=== PATIENT | male | born 1990 | race Caucasian/White ===

== ENCOUNTER 2017-05-28 18:49 | Emergency (ER) | payer BC, MEDICAID ==
--- NOTE | 2017-05-28 19:07 | Emergency Department Record ---
History of Present Illness - General Chief Complaint: Chest Pain Stated Complaint: CHEST PAIN Time Seen by Provider: 05/28/17 19:06 Source: Patient Mode of Arrival: Ambulatory Limitations: No limitations - History of Present Illness Initial Comments: 27 yo male presents to ED for evaluation of constant chest pain for the past 2 days. Patient reports fatigue, non-productive cough symptoms, myalgias, and feeling tired. Patient denies any symptoms of pain with deep inspiration, denies history of DVT. Patient denies lower extremity swelling or pain. Patient denies any heart or lung problems, only reports history of HTN. Patient reports that his symptoms have not resolved for 1 minute over the past 2 days. MD Complaint: Chest pain Onset/Timin -: Days(s) Pain Location: Left chest Pain Radiation: None Consistency: Constant Improves With: Nothing Worsens With: Nothing - Related Data Home Medications Medication Instructions Recorded Confirmed Last Taken Cholecalciferol (Vitamin D3) 4,000 unit PO DAILY 05/28/17 05/28/17 Unknown [Vitamin D3] Losartan Potassium [Cozaar] 100 mg PO DAILY 05/28/17 05/28/17 Unknown Nebivolol HCl [Bystolic] 20 mg PO DAILY 05/28/17 05/28/17 Unknown Pantoprazole Sodium [Protonix] 40 mg PO DAILY 05/28/17 05/28/17 Unknown Allergies Allergy/AdvReac Type Severity Reaction Status Date / Time Sulfa (Sulfonamide Allergy PT UNSURE Verified 05/28/17 19:08 Antibiotics) OF REACTION Travel Screening - Travel/Exposure Within Last 30 Days Have you traveled within the last 30 days?: Yes Location Detail:: [place] - Travel Symptoms Symptom Screening: None Review of Systems Constitutional: Denies: Chills, Fever, Malaise, Night sweats Eyes: Denies: Eye discharge, Eye pain ENT: Denies: Congestion, Ear pain, Epistaxis Respiratory: Denies: Cough, Dyspnea Cardiovascular: Reports: Chest pain. Denies: Dyspnea on exertion Endocrine: Denies: Fatigue, Heat or cold intolerance Gastrointestinal: Denies: Abdominal pain, Nausea, Vomiting Genitourinary: Denies: Incontinence, Retention Musculoskeletal: Denies: Arthralgia, Back pain, Gout, Joint swelling Skin: Denies: Bruising, Change in color Neurological: Denies: Abnormal gait, Confusion, Headache Psychiatric: Denies: Anxiety Hematological/Lymphatic: Denies: Anemia, Blood Clots Past Medical History - SOCIAL HISTORY Smoking Status: Former smoker Alcohol Use: Rare Drug Use: None - RESPIRATORY Hx Respiratory Disorders: No - CARDIOVASCULAR Hx Cardio Disorders: Yes Hx Hypertension: Yes - NEURO Hx Neuro Disorders: No - GI Hx GI Disorders: Yes Hx Reflux: Yes - Hx Genitourinary Disorders: No - ENDOCRINE Hx Endocrine Disorders: No - MUSCULOSKELETAL Hx Musculoskeletal Disorders: No - PSYCH Hx Psych Problems: No - HEMATOLOGY/ONCOLOGY Hx Hematology/Oncology Disorders: No Family Medical History Any Significant Family History?: Yes Hx Heart Disease: Mother, Grandparents *Heart Comment: high cholesterol, [place] Physical Exam - General General Appearance: Alert, Oriented x3, Cooperative, No acute distress Limitations: No limitations - Head Head exam: Atraumatic, Normocephalic, Normal inspection Head exam detail: negative: Abrasion, Contusion, Benitez's sign, General tenderness, Hematoma, Laceration - Eye Eye exam: Normal appearance. negative: Conjunctival injection, Periorbital swelling, Periorbital tenderness, Scleral icterus - ENT Ear exam: negative: Auricular hematoma, Auricular trauma Nasal Exam: negative: Active bleeding, Discharge, Dried blood, Foreign body Mouth exam: negative: Drooling, Laceration, Muffled voice, Tongue elevation - Neck Neck exam: Normal inspection. negative: Meningismus, Tenderness - Respiratory Respiratory exam: Normal lung sounds bilaterally. negative: Respiratory distress, Rhonchi, Stridor, Wheezes - Cardiovascular Cardiovascular Exam: Regular rate, Normal rhythm, Normal heart sounds - GI/Abdominal GI/Abdominal exam: Soft. negative: Distended, Rebound, Rigid, Tenderness - Rectal Rectal exam: Deferred - exam: Deferred - Extremities Extremities exam: Normal inspection. negative: Calf tenderness, Pedal edema, Tenderness - Back Back exam: Denies: CVA tenderness (R), CVA tenderness (L) - Neurological Neurological exam: Alert, Normal gait, Oriented X3 - Psychiatric Psychiatric exam: Normal affect, Normal mood - Skin Skin exam: Normal color. negative: Abrasion Type of lesion: negative: abrasion Course Vital Signs 05/28/17 18:53 Temperature 98.3 F Pulse Rate 74 Respiratory 20 Rate Blood Pressure 185/119 Pulse Ox 97 - Reevaluation(s) Reevaluation #1: 05/28/17 19:06 EKG: NSR 71 Normal axis, normal intervals No acute ST-T wave changes Reevaluation #2: 05/28/17 19:57 Labs reviewed and are grossly unremarkable for an acute process. CXR: No acute process Patient was updated on all results, single troponin is felt to be sufficient as the patient has had constant pain for 2 days, normal EKG, and history that does not appear to be c/w cardiac chest pain. Patient is PERC negative on examination as well. Patient appears stable for discharge at this time. Medical Decision Making - Lab Data Result diagrams: 05/28/17 19:05 05/28/17 19:05 Disposition Disposition: Discharge Clinical Impression: Chest pain Qualifiers: Chest pain type: unspecified Qualified Code(s): R07.9 - Chest pain, unspecified Disposition: Home, Self-Care Condition: (2) Stable Instructions: Chest Pain (ED) Additional Instructions: Return to ED if your symptoms worsen or if you have any concerns. Follow-up with your family doctor in 3-5 days as directed. Forms: Patient Portal Access Time of Disposition: 20:01 Quality - Quality Measures Quality Measures: N/A - Blood Pressure Screening Does Patient Have Any of the Following: No Blood Pressure Classification: Hypertensive Reading Systolic Measurement: 163 Diastolic Measurement: 102 Screening for High Blood Pressure: < First Hypertensive BP, F/U Documented > [ G8950] First Hypertensive Follow-up Interventions: Referral to alternative/primary care provider.
[2017-05-28] MEDS ORDERED: KETOROLAC 30 MG/ML VIAL IVP ONE (19:10)
[2017-05-28] MEDS ORDERED: 0.9 % SODIUM CHLORIDE 1000ML 1,000 ML IV SCH (19:15)
[2017-05-28 19:18] LABS: BASO % 0.1 % (0-6); EOS % 3.9 % (0-6); GRAN % 50.3 % (47-80); HEMOGLOBIN 15.1 gm/dl (14.0-18.0); LYMPH % 36.8 % (16-45); MEAN CELL VOLUME 94.4 fl (81-97); MEAN CORPUSCULAR HEMOGLOBIN 32.4 pg (27-33); MEAN CORPUSCULAR HGB CONC 34.3 g/dl (32-36); MEAN PLATELET VOLUME 10.6 fl (7.4-10.4); MONO % 8.9 % (0-9); PLATELET COUNT 298 K/uL (130-400); RED BLOOD COUNT 4.66 M/uL (4.40-5.70); RED CELL DISTRIBUTION WIDTH 12.4 % (11.5-14.5); WHITE BLOOD COUNT W/O DIFF 8.1 K/uL (4.2-12.2)
[2017-05-28 19:29] LABS: INFLUENZA A NEGATIVE (NEGATIVE)
[2017-05-28 19:30] LABS: INFLUENZA B NEGATIVE (NEGATIVE)
[2017-05-28 19:49] LABS: ALB/GLOB RATIO 1.2 (1.1-1.8); ALBUMIN 4.1 g/dL (4.0-5.0); ALKALINE PHOSPHATASE 79 U/L (40-129); ALT/SGPT 23 U/L (<41); AST/SGOT 21 U/L (10.0-50.0); BLOOD UREA NITROGEN 15 mg/dL (6-20); EST GLOMERULAR FILTRATION RATE > 60 mL/min; GLUCOSE,RANDOM 114 mg/dL (74-109); TOTAL PROTEIN 7.5 g/dL (6.6-8.7)
--- NOTE | 2017-05-29 23:33 | RADIOLOGY REPORT ---
EXAM: CHEST 2 VIEWS HISTORY: COUGH. TECHNIQUE: Frontal and lateral views of the chest. COMPARISON: 10/27/12 chest. FINDINGS: The heart size is normal. The lungs are clear. No pneumothorax. IMPRESSION: NEGATIVE CHEST. JOB NUMBER: [id number] MTDD
== END 2017-05-28 20:15 | disposition home or self-care (01) ==
LOC: ER 18:49
DX: R07.9 Chest pain, unspecified (principal); R51 Headache; R05 Cough; R53.83 Other fatigue; I10 Essential (primary) hypertension; Z87.891 Personal history of nicotine dependence
CPT/HCPCS: 99284 ×2; 96374; 85025; 80053; 87400; 84484; 71046; 93005; 93010; J1885; 99282; J7030

== ENCOUNTER 2018-10-30 16:31 | Emergency (ER) | payer BC ==
[2018-10-30 17:53] LABS: URINE APPEARANCE CLEAR; URINE BILIRUBIN NEGATIVE (NEGATIVE); URINE BLOOD NEGATIVE (NEGATIVE); URINE COLOR YELLOW; URINE GLUCOSE (UA) NEGATIVE (NEGATIVE); URINE KETONE NEGATIVE (NEGATIVE); URINE LEUKOCYTE ESTERASE NEGATIVE (NEGATIVE); URINE NITRITE NEGATIVE (NEGATIVE); URINE UROBILINOGEN 0.2 E.U./dL (0.20 - 1.00)
[2018-10-30] MEDS ORDERED: ONDANSETRON HCL IV 4 MG/2 ML VIAL IVP ONE (17:55)
[2018-10-30] MEDS ORDERED: HYDROMORPHONE HCL 2 MG/ML VIAL IVP ONE (17:55)
[2018-10-30] MEDS ORDERED: AMPICILLIN SODIUM/SULBACTAM NA 3 G in 0.9 % SODIUM CHLORIDE 100ML 100 ML IVPB ONE (17:57)
[2018-10-30] MEDS ORDERED: 0.9 % SODIUM CHLORIDE 1000ML 1,000 ML IV SCH (18:00)
--- NOTE | 2018-10-30 18:00 | Emergency Department Record ---
History of Present Illness - General Chief Complaint: Abdominal Pain Stated Complaint: ABD PAIN/NAUSEA Time Seen by Provider: 10/30/18 17:54 Source: Patient Mode of Arrival: Ambulatory Limitations: No limitations - History of Present Illness Initial Comments: 28 yo male presents to ED for evaluation of right sided abdominal pain that began 3 days ago, briefly improved, however worsened today. Patient reports associated nausea/vomiting, denies fevers, chills, or urinary symptoms. Patient denies health problems other than HTN, denies previous abdominal surgeries. Patient reports that his pain symptoms are worse with driving over bumps in the car. MD Complaint: Abdominal pain Onset/Timin -: Days(s) Location: RUQ, RLQ Severity: Severe Severity scale (1-10): 8 Quality: Sharp Consistency: Constant Improves With: Nothing Worsens With: Nothing Associated Symptoms: Constipation, Other - Related Data Home Medications Medication Instructions Recorded Confirmed Last Taken Guanfacine HCl [Intuniv] 3 mg PO DAILY 10/30/18 10/30/18 10/30/18 Lisinopril 20 mg PO DAILY 10/30/18 10/30/18 10/30/18 Allergies Allergy/AdvReac Type Severity Reaction Status Date / Time amlodipine Allergy SWELLING Verified 10/30/18 17:21 (GENERAL) Sulfa (Sulfonamide Allergy PT UNSURE Verified 10/30/18 17:17 Antibiotics) OF REACTION Travel Screening - Travel/Exposure Within Last 30 Days Have you traveled within the last 30 days?: No - Travel/Exposure Within Last Year Have you traveled outside the [place] in the last year?: No - Additonal Travel Details Have you been exposed to anyone with a communicable illness?: No - Travel Symptoms Symptom Screening: None Review of Systems Constitutional: Denies: Chills, Fever, Malaise, Night sweats Eyes: Denies: Eye discharge, Eye pain ENT: Denies: Congestion, Ear pain, Epistaxis Respiratory: Denies: Cough, Dyspnea Cardiovascular: Denies: Chest pain, Dyspnea on exertion Endocrine: Denies: Fatigue, Heat or cold intolerance Gastrointestinal: Reports: Abdominal pain, Nausea, Vomiting Genitourinary: Denies: Incontinence, Retention Musculoskeletal: Denies: Arthralgia, Back pain Skin: Denies: Bruising, Change in color Neurological: Denies: Abnormal gait, Confusion, Headache, Numbness, Tingling Psychiatric: Denies: Anxiety Hematological/Lymphatic: Denies: Anemia, Blood Clots Past Medical History - SOCIAL HISTORY Smoking Status: Former smoker Alcohol Use: Occasional Alcohol Use Comment: 4 to 5 beers a day Drug Use: None - RESPIRATORY Hx Respiratory Disorders: No - CARDIOVASCULAR Hx Cardio Disorders: Yes Hx Hypertension: Yes - NEURO Hx Neuro Disorders: No - GI Hx GI Disorders: Yes Hx Reflux: Yes - Hx Genitourinary Disorders: No - ENDOCRINE Hx Endocrine Disorders: No - MUSCULOSKELETAL Hx Musculoskeletal Disorders: No - PSYCH Hx Psych Problems: No - HEMATOLOGY/ONCOLOGY Hx Hematology/Oncology Disorders: No Family Medical History Any Significant Family History?: Yes Hx Heart Disease: Mother, Grandparents *Heart Comment: high cholesterol, [place] Physical Exam - General General Appearance: Alert, Oriented x3, Cooperative, Moderate distress (Appears uncomfortable on examination) Limitations: No limitations - Head Head exam: Atraumatic, Normocephalic, Normal inspection Head exam detail: negative: Abrasion, Contusion, Benitez's sign, General tenderness, Hematoma, Laceration - Eye Eye exam: Normal appearance. negative: Conjunctival injection, Periorbital swelling, Periorbital tenderness, Scleral icterus - ENT Ear exam: negative: Auricular hematoma, Auricular trauma Nasal Exam: negative: Active bleeding, Discharge, Dried blood, Foreign body Mouth exam: negative: Laceration, Muffled voice, Tongue elevation - Neck Neck exam: Normal inspection. negative: Meningismus, Tenderness - Respiratory Respiratory exam: Normal lung sounds bilaterally. negative: Respiratory distress, Rhonchi, Stridor, Wheezes - Cardiovascular Cardiovascular Exam: Regular rate, Normal rhythm, Normal heart sounds - GI/Abdominal GI/Abdominal exam: Soft, Tenderness, Other (TTP greastest RLQ, then RUQ, LLQ on examination. ). negative: Pulsatile mass, Rebound, Rigid - Rectal Rectal exam: Deferred - exam: Deferred - Extremities Extremities exam: Normal inspection. negative: Pedal edema, Tenderness - Back Back exam: Denies: CVA tenderness (R), CVA tenderness (L) - Neurological Neurological exam: Alert, Normal gait, Oriented X3 - Psychiatric Psychiatric exam: Normal affect, Normal mood - Skin Skin exam: Normal color. negative: Abrasion Type of lesion: negative: abrasion Course Vital Signs 10/30/18 17:23 Temperature 97.6 F Pulse Rate 68 Respiratory 16 Rate Blood Pressure 125/72 Pulse Ox 97 - Reevaluation(s) Reevaluation #1: 10/30/18 17:59 Patient was seen and examined, abdominal examination is concerning for possible surgical process. Analgesia, antiemetic, laboratory studies and CT imaging ordered. Unasyn ordered as well for treatment of possible cholecystitis/appendicitis pending results. Reevaluation #2: 10/30/18 18:41 Laboratory studies were reviewed and are grossly unremarkable for an acute pro cess except for the following: WBC 18 Creatinine 3.1 (previous 1.0 06/09) Patient is back from CT, reports that he is feeling more comfortable on re- examination. CT result is pending at this time. Reevaluation #3: 10/30/18 19:15 CT Abdomen and Pelvis: No acute process Reevaluation #4: 10/30/18 19:32 Patient was updated on all results, examination is still concerning for surgical process. Recommend surgical consultation, patient prefers [facility]. [facility] 1-call contacted for transfer. Reevaluation #5: 10/30/18 19:43 Case was discussed with Dr. Mccain and Dr. Navarro, will accept the patient ED- ED for surgical consultation. Medical Decision Making - Lab Data Result diagrams: 10/30/18 17:50 10/30/18 17:50 Lab Results 10/30/18 Range/Units 17:46 Urine Color Yellow Urine Appearance Clear Urine pH 6.0 (5.0-8.0) Ur Specific Bliss <= 1.005 (1.002-1.030) Urine Protein 30 mg/dl H (NEGATIVE) Urine Glucose (UA) Negative (NEGATIVE) Urine Ketones Negative (NEGATIVE) Urine Blood Negative (NEGATIVE) Urine Nitrite Negative (NEGATIVE) Urine Bilirubin Negative (NEGATIVE) Urine Urobilinogen 0.2 (0.20 - 1.00) E.U./dL Ur Leukocyte Esterase Negative (NEGATIVE) Disposition Disposition: Transfer Clinical Impression: ANJANA (acute kidney injury) Abdominal pain Qualifiers: Abdominal location: right lower quadrant Qualified Code(s): R10.31 - Right lower quadrant pain Leukocytosis Qualifiers: Leukocytosis type: unspecified Qualified Code(s): D72.829 - Elevated white blood cell count, unspecified Disposition: Acute Care Hospital Transfer Transfer To: [facility] Reason For Transfer: Surgical consultation Accepting Physician: Boaz Keating Time Discussed w/Accepting Physician: 19:44 Condition: (2) Stable Forms: Patient Portal Access Time of Disposition: 19:45 Quality - Quality Measures Quality Measures: N/A - Blood Pressure Screening Does Patient Have Any of the Following: No Blood Pressure Classification: Pre-Hypertensive BP Reading Systolic Measurement: 125 Diastolic Measurement: 72 Screening for High Blood Pressure: < Pre-Hypertensive BP, F/U Documented > [G8950] Pre-Hypertensive Follow-up Interventions: Referral to alternative/primary care provider.
[2018-10-30 18:03] LABS: URINE BACTERIA FEW; URINE EPITHELIAL CELLS 0 - 2 (FEW); URINE HYALINE CAST 0 - 2 /lpf; URINE RBC 0 - 2 (NONE SEEN)
[2018-10-30 18:15] LABS: HEMATOCRIT 45.3 % (42.0-52.0); HEMOGLOBIN 15.3 gm/dl (14.0-18.0); MEAN CORPUSCULAR HEMOGLOBIN 32.1 pg (27-33); MEAN CORPUSCULAR HGB CONC 33.8 g/dl (32-36); MEAN PLATELET VOLUME 10.8 fl (7.4-10.4); PLATELET COUNT 293 K/uL (130-400); RED BLOOD COUNT 4.77 M/uL (4.40-5.70); RED CELL DISTRIBUTION WIDTH 14.1 % (11.5-14.5)
[2018-10-30 18:26] LABS: BILIRUBIN,TOTAL 0.6 mg/dL (0.2-1.0); CREATININE 3.1 mg/dL (0.7-1.2)
[2018-10-30 18:27] LABS: TOTAL PROTEIN 7.8 g/dL (6.6-8.7)
[2018-10-30 18:32] LABS: ALB/GLOB RATIO 1.2 (1.1-1.8); ALBUMIN 4.3 g/dL (4.0-5.0)
[2018-10-30 18:46] LABS: ABSOLUTE NEUTROPHIL COUNT 13.46
[2018-10-30] MEDS ORDERED: MORPHINE SULFATE 10MG/1ML **1ML VIAL IVP SCH (20:15)
--- NOTE | 2018-11-02 01:52 | CT SCAN REPORT ---
EXAM: CT SCAN ABDOMEN/PELVIS W CONTRAST HISTORY: RIGHT-SIDED ABDOMINAL PAIN TODAY. TECHNIQUE: Standard CT imaging of the abdomen and pelvis with IV contrast. Coronal and sagittal reformations are provided. Delayed images are obtained through the kidneys. COMPARISON: None. FINDINGS: Extensive respiratory motion at the level of the diaphragms. Portions of the liver appear skipped due to the extensive respiratory motion. The liver is unremarkable. The gallbladder demonstrates no calcified stones or pericholecystic edema. The common bile duct is not dilated. The pancreas, spleen, adrenal glands, and kidneys appear normal. The stomach and small bowel are unremarkable. There is a tiny fat-containing umbilical hernia. The bladder is unremarkable. The colon and appendix appear normal. No free fluid or free air is seen. No retroperitoneal or pelvic adenopathy. The aorta is normal in caliber. No destructive osseous lesion is identified. IMPRESSION: NEGATIVE CT OF THE ABDOMEN AND PELVIS. SUBOPTIMAL EVALUATION AT THE LEVEL OF THE DIAPHRAGM DUE TO RESPIRATORY MOTION. ADDENDUM: Second look requested at slice 108 adjacent to the cecum. Within this region, there is the terminal ileum without evidence for definite wall thickening or inflammatory changes. JOB NUMBER: [id number] [facility]
== END 2018-10-30 20:40 | disposition short-term general hospital (02) ==
LOC: ER 16:31
DX: N17.9 Acute kidney failure, unspecified (principal); D72.829 Elevated white blood cell count, unspecified; R10.31 Right lower quadrant pain; I10 Essential (primary) hypertension; F17.210 Nicotine dependence, cigarettes, uncomplicated
CPT/HCPCS: 99285 ×2; 96365; 96375; 83690; 80053; 81001; 85027; 74177; Q9967; J0295; J2405; J1170; J2270

== ENCOUNTER 2019-03-21 13:06 | Emergency (ER) | payer BC ==
[2019-03-21] MEDS ORDERED: METHYLPREDNISOLONE PF 125MG/VIAL IVP ONE (13:19)
[2019-03-21] MEDS ORDERED: EPINEPHRINE 1 MG/ML AMPUL IM ONE (13:20)
[2019-03-21] MEDS ORDERED: FAMOTIDINE IV 20 MG/2 ML VIAL IVP ONE (13:24)
--- NOTE | 2019-03-21 13:26 | Emergency Department Record ---
History of Present Illness - General Chief complaint: Allergic Reaction Stated complaint: ALERGIC REACTION Time Seen by Provider: 03/21/19 13:19 Source: Patient, RN notes reviewed Mode of Arrival: Ambulatory - History of Present Illness Initial Comments: patient wake up with swollen lips and he accidentally took double dose of lisopril and he also has hives and bottom of the right foot swollen . Some tightness in his throat. [facility] and got a shot of steroids and given benadryl and things getting worse so came to the ED. Onset/Timin -: Hour(s) Exposure: Medication Symptoms: Difficulty swallowing, Lip swelling Severity: Moderate Treatment Prior to Arrival: Benadryl, Steroids Previous Allergy History: None - Related Data Home Medications Medication Instructions Recorded Confirmed Last Taken Bupropion HCl [Wellbutrin Xl] 300 mg PO DAILY 03/21/19 03/21/19 Unknown Previous Rx's Medication Instructions Recorded Prednisone [Prednisone 10Mg] 10 mg PO ASDIR #30 tab 03/21/19 Allergies Allergy/AdvReac Type Severity Reaction Status Date / Time amlodipine Allergy SWELLING Verified 10/30/18 17:21 (GENERAL) Sulfa (Sulfonamide Allergy PT UNSURE Verified 10/30/18 17:17 Antibiotics) OF REACTION Travel Screening - Travel/Exposure Within Last 30 Days Have you traveled within the last 30 days?: No Review of Systems Reviewed: No additional complaints except as noted below Constitutional: Reports: As per HPI. Denies: Chills, Fever, Malaise, Night sweats, Weakness, Weight change Eyes: Reports: As per HPI. Denies: Eye discharge, Eye pain, Photophobia, Vision change ENT: Reports: As per HPI, Other (swelling of lips). Denies: Congestion, Dental pain, Ear pain, Epistaxis, Hearing loss, Throat pain Respiratory: Reports: As per HPI. Denies: Cough, Dyspnea, Hemoptysis, Stridor, Wheezes Cardiovascular: Reports: As per HPI. Denies: Arrhythmia, Chest pain, Dyspnea on exertion, Edema, Murmurs, Orthopnea, Palpitations, Paroxysmal nocturnal dyspnea, Rheumatic Fever, Syncope Endocrine: Reports: As per HPI. Denies: Fatigue, Heat or cold intolerance, Polydipsia, Polyuria Gastrointestinal: Reports: As per HPI. Denies: Abdominal pain, Constipation, Diarrhea, Hematemesis, Hematochezia, Melena, Nausea, Vomiting Genitourinary: Reports: As per HPI. Denies: Dysuria, Frequency, Hematuria, Incontinence, Retention, Testicular pain, Testicular mass, Urgency Musculoskeletal: Reports: As per HPI. Denies: Arthralgia, Back pain, Gout, Joint swelling, Myalgia, Neck pain Skin: Reports: As per HPI. Denies: Bruising, Change in color, Change in hair/nails, Lesions, Pruritus, Rash Neurological: Reports: As per HPI. Denies: Abnormal gait, Confusion, Headache, Numbness, Paresthesias, Seizure, Tingling, Tremors, Vertigo, Weakness Psychiatric: Reports: As per HPI. Denies: Anxiety, Auditory hallucinations, Dep ression, Homicidal thoughts, Suicidal thoughts, Visual hallucinations Hematological/Lymphatic: Reports: As per HPI. Denies: Anemia, Blood Clots, Easy bleeding, Easy bruising, Swollen glands Past Medical History - SOCIAL HISTORY Smoking Status: Former smoker - RESPIRATORY Hx Respiratory Disorders: No - CARDIOVASCULAR Hx Cardio Disorders: Yes Hx Hypertension: Yes - NEURO Hx Neuro Disorders: No - GI Hx GI Disorders: Yes Hx Reflux: Yes - Hx Genitourinary Disorders: No - ENDOCRINE Hx Endocrine Disorders: No - MUSCULOSKELETAL Hx Musculoskeletal Disorders: No - PSYCH Hx Psych Problems: No - HEMATOLOGY/ONCOLOGY Hx Hematology/Oncology Disorders: No Family Medical History Any Significant Family History?: Yes Hx Heart Disease: Mother, Grandparents *Heart Comment: high cholesterol, [place] Physical Exam - General General Appearance: Alert, Oriented x3, Cooperative, No acute distress - Head Head exam: Normal inspection - Eye Eye exam: Normal appearance, PERRL Pupils: Normal accommodation - ENT ENT exam: Normal external ear exam, TM's normal bilaterally, Other (swollen upper lip ) Ear exam: Normal external inspection. negative: External canal tenderness Nasal Exam: Normal inspection. negative: Discharge, Sinus tenderness Mouth exam: Normal external inspection, Tongue normal Teeth exam: Normal inspection. negative: Dental caries Throat exam: Normal inspection, Other (no swelling in posterior throat). negative: Tonsillar erythema, Tonsillar exudate - Neck Neck exam: Normal inspection, Full ROM. negative: Tenderness - Respiratory Respiratory exam: Normal lung sounds bilaterally. negative: Respiratory distress - Cardiovascular Cardiovascular Exam: Regular rate, Normal rhythm, Normal heart sounds - GI/Abdominal GI/Abdominal exam: Soft, Normal bowel sounds. negative: Tenderness - Rectal Rectal exam: Deferred - exam: Deferred - Extremities Extremities exam: Normal inspection, Full ROM, Normal capillary refill. negative: Tenderness - Back Back exam: Reports: Normal inspection, Full ROM. Denies: Muscle spasm, Rash noted, Tenderness - Neurological Neurological exam: Alert, Normal gait, Oriented X3, Reflexes normal - Psychiatric Psychiatric exam: Normal affect, Normal mood - Skin Skin exam: Rash, Urticaria, Other (some swelling of the right foot) Course Vital Signs 03/21/19 13:08 Temperature 98.1 F Pulse Rate 86 Respiratory 16 Rate Blood Pressure 164/103 Pulse Ox 94 L - Reevaluation(s) Reevaluation #1: advised patient he needs to stay to make sure his air way stays open03/21/19 15:16 Reevaluation #2: pateint states his throat is better and he is drinking water without problems and his lips are swollen and the reah on body is better. 03/21/19 16:21 Reevaluation #3: we talked about staying in the hospital and he doesn't want to stay and he will return if difficulties with swallowing or breathing . Risk discussed. overall he is doing better except for his lips which are swollen. I wanted him to stay and he said no. Female with him listened to the discussion 03/21/19 16:22 Disposition Clinical Impression: Angioedema Qualifiers: Encounter type: initial encounter Qualified Code(s): T78.3XXA - Angioneurotic edema, initial encounter Disposition: Home, Self-Care Condition: (1) Good Instructions: Angioedema (ED) Additional Instructions: return if diificulty breathing or difficulty swallowing take prednisone 4 pills a day for 3 days and then 3 pills a day for 3 days then 2 pills a day for three days than one pill a day. take benadryl 50 mg every 6 hours follow up with family Dr next week stop lisinopril Prescriptions: Prednisone [Prednisone 10Mg] 10 mg PO ASDIR #30 tab Forms: Patient Portal Access Time of Disposition: 16:34 Quality - Quality Measures Quality Measures: N/A - Blood Pressure Screening Does Patient Have Any of the Following: No, Active Dx of HTN Blood Pressure Classification: Hypertensive Reading Systolic Measurement: 164 Diastolic Measurement: 103 Screening for High Blood Pressure: Patient Exclusion, Hx of HTN [G9744]
== END 2019-03-21 17:05 | disposition home or self-care (01) ==
LOC: ER 13:06
DX: T46.4X1A Poisoning by angiotensin-converting-enzyme inhibitors, accidental (unintentional), initial encounter (principal); T78.3XXA Angioneurotic edema, initial encounter; R13.10 Dysphagia, unspecified; I10 Essential (primary) hypertension; Z87.891 Personal history of nicotine dependence
CPT/HCPCS: 96372; 96374; 96375; 99284; J0171; J2930; J3490

== ENCOUNTER 2019-03-22 01:47 | Emergency (ER) | payer BC ==
--- NOTE | 2019-03-22 01:55 | Emergency Department Record ---
History of Present Illness - General Stated complaint: ALLERGIC REACTION Time Seen by Provider: 03/22/19 01:48 Source: Patient Mode of Arrival: Ambulatory Limitations: No limitations - History of Present Illness Initial comments: 28 yo male returns for a recheck of his lip swelling. He was evaluated earlier on 03/21. He is on Lisinopril. He was treated in the ED with Epinephrine, Steroids, and Pepcid. He states earlier his upper lip was the main issue with a feeling of throat swelling. Now he returns with lower lip swelling that is new. No cough, no shortness of breath, no throat swelling, no trouble swallowing currently. His last dose of his Lisinopril was yesterday. He additionally had some hives on the lower abdomen, back, arms that are improved since this mo rning. He has taken Benadryl twice during the day. MD complaint: Other (Lip swelling) -: Hour(s) Location: Lower lip Quality: Other Consistency: Constant Improves with: Other Worsens with: Medication Context-Epistaxis: History of similar (Earlier today) - Related Data Previous Rx's Medication Instructions Recorded Prednisone [Prednisone 10Mg] 10 mg PO ASDIR #30 tab 03/21/19 Allergies Allergy/AdvReac Type Severity Reaction Status Date / Time amlodipine Allergy SWELLING Verified 10/30/18 17:21 (GENERAL) lisinopril Allergy SWELLING Verified 03/22/19 01:57 OF THE LIPS losartan Allergy SWELLING Verified 03/22/19 01:57 (GENERAL) Sulfa (Sulfonamide Allergy PT UNSURE Verified 10/30/18 17:17 Antibiotics) OF REACTION Review of Systems Constitutional: Denies: Chills, Fever, Malaise, Weakness Eyes: Denies: Eye discharge, Eye pain, Vision change ENT: Reports: Other (Lip swelling). Denies: Congestion, Dental pain, Throat pain Respiratory: Denies: Cough, Dyspnea Cardiovascular: Denies: Chest pain, Syncope Endocrine: Denies: Fatigue Gastrointestinal: Denies: Abdominal pain, Diarrhea, Nausea, Vomiting Genitourinary: Denies: Dysuria, Frequency, Hematuria Musculoskeletal: Denies: Arthralgia, Back pain, Myalgia Skin: Denies: Bruising, Change in color, Rash Neurological: Denies: Headache Psychiatric: Denies: Anxiety Hematological/Lymphatic: Denies: Easy bleeding, Easy bruising Past Medical History - SOCIAL HISTORY Smoking Status: Former smoker - RESPIRATORY Hx Respiratory Disorders: No - CARDIOVASCULAR Hx Cardio Disorders: Yes Hx Hypertension: Yes - NEURO Hx Neuro Disorders: No - GI Hx GI Disorders: Yes Hx Reflux: Yes - Hx Genitourinary Disorders: No - ENDOCRINE Hx Endocrine Disorders: No - MUSCULOSKELETAL Hx Musculoskeletal Disorders: No - PSYCH Hx Psych Problems: No - HEMATOLOGY/ONCOLOGY Hx Hematology/Oncology Disorders: No Family Medical History Hx Heart Disease: Mother, Grandparents *Heart Comment: high cholesterol, [place] Physical Exam - General General Appearance: Alert, Oriented x3, Cooperative, No acute distress, Other ( No distress, mild upper and moderate lower lip swelling, normal tongue) Limitations: No limitations - Head Head exam: Atraumatic, Normal inspection Image of Face/Head: 1 - moderate lower lip swelling - Eye Eye exam: Normal appearance, PERRL - ENT ENT exam: Normal exam, Mucous membranes moist, Normal orophraynx Ear exam: Normal external inspection Nasal Exam: Normal inspection Mouth exam: Tongue normal, Other (Lower lip swelling, moderate, easily and widely opens the mouth.). negative: Normal external inspection, Drooling, Muffled voice, Tongue elevation, Trismus Teeth exam: Normal inspection. negative: Gingival enlargement Throat exam: Normal inspection. negative: Tonsillar erythema, Tonsillomegaly, Tonsillar exudate, R peritonsillar mass, L peritonsillar mass - Neck Neck exam: Normal inspection, Full ROM. negative: Tenderness - Respiratory Respiratory exam: Normal lung sounds bilaterally, Other (Calm breathing). negative: Accessory muscle use, Decreased breath sounds, Prolonged expiratory, Respiratory distress, Rhonchi, Stridor, Wheezes - Cardiovascular Cardiovascular Exam: Regular rate, Normal rhythm, Normal heart sounds - GI/Abdominal GI/Abdominal exam: Soft. negative: Tenderness - Rectal Rectal exam: Deferred - exam: Deferred - Extremities Extremities exam: Normal inspection. negative: Calf tenderness, Pedal edema, Tenderness - Back Back exam: Reports: Rash noted (few hives in the lower abdomen). Denies: CVA tenderness (R), CVA tenderness (L) - Neurological Neurological exam: Alert, Oriented X3 - Psychiatric Psychiatric exam: Normal affect, Normal mood - Skin Skin exam: negative: Diaphoretic Course - Reevaluation(s) Reevaluation #1: Given the recurrent nature of the swelling now involving a new area I recommend admission I recommend admission at a hospital with step down or anesthesia available in the event it worsens The patient is a patient of [facility] at [facility] was contacted for possible transfer The patient has a clear voice without immediate indication for airway management 03/22/19 02:08 12 02:19 The case was discussed with Dr Crenshaw of [facility] She agrees to accept the case for transfer for observation until resolved 03/22/19 02:19 The patient is well aware he is to not take an Fidencio Inhibitor again (Lisinopril) We discussed that there may be another cause of his reaction but the Lisinopril is likely given the nature and location of the edema 03/22/19 02:27 On recheck no significant change. No worsening. 03/22/19 02:28 03/22/19 02:34 Bed assigned at [facility] 12 02:37 The patient was informed Swelling is unchanged 03/22/19 03:01 The lab analyzing is down for calibration so no labs were run or would be available at this time 03/22/19 03:04 Swelling is not significantly changed No throat or tongue symptoms 03/22/19 03:05 Waiting for EMS availability 03/22/19 03:16 20 minute ETA for EMS at this time. Patient is stable for transfer Disposition Disposition: Transfer Clinical Impression: Angioedema Qualifiers: Encounter type: initial encounter Qualified Code(s): T78.3XXA - Angioneurotic edema, initial encounter Disposition: Acute Care Hospital Transfer Transfer To: [facility] Reason For Transfer: Recurrent Angioedema Accepting Physician: Den Time Discussed w/Accepting Physician: 02:18 Condition: (2) Stable Forms: Patient Portal Access Time of Disposition: :18 Quality - Quality Measures Quality Measures: N/A - Blood Pressure Screening Does Patient Have Any of the Following: No Blood Pressure Classification: Hypertensive Reading Systolic Measurement: 140 Diastolic Measurement: 92 Screening for High Blood Pressure: Patient Exclusion, Hx of HTN [G9744]
[2019-03-22] MEDS ORDERED: METHYLPREDNISOLONE PF 125MG/VIAL IVP STA (01:57)
[2019-03-22] MEDS ORDERED: FAMOTIDINE IV 40 MG in 0.9 % SODIUM CHLORIDE 100ML 100 ML IVPB ONE (01:57)
[2019-03-22] MEDS ORDERED: EPINEPHRINE 1 MG/ML AMPUL IM ONE (01:57)
[2019-03-22] MEDS ORDERED: DIPHENHYDRAMINE HCL 50 MG/ML VIAL IVP ONE (01:57)
[2019-03-22] MEDS ORDERED: ACETAMINOPHEN 1,000 MG/100 ML BTL IVPB ONE (03:01)
== END 2019-03-22 03:36 | disposition short-term general hospital (02) ==
LOC: ER 01:47
DX: T78.3XXA Angioneurotic edema, initial encounter (principal); T46.4X5A Adverse effect of angiotensin-converting-enzyme inhibitors, initial encounter; I10 Essential (primary) hypertension; Z87.891 Personal history of nicotine dependence
CPT/HCPCS: 96365; 96366; 96372; 96375; 99285; J0171; J1200; J2930; J3490

== ENCOUNTER 2019-03-24 05:45 | Emergency (ER) | payer BC ==
[2019-03-24 06:15] LABS: ABSOLUTE NEUTROPHIL COUNT 9.38; BASO % 0.1 % (0-6); GRAN % 65.9 % (47-80); HEMATOCRIT 50.8 % (42.0-52.0); LYMPH % 27.2 % (16-45); MEAN CELL VOLUME 93.4 fl (81-97); MEAN CORPUSCULAR HEMOGLOBIN 31.3 pg (27-33); MEAN CORPUSCULAR HGB CONC 33.5 g/dl (32-36); MEAN PLATELET VOLUME 11.5 fl (7.4-10.4); MONO % 6.8 % (0-9); PLATELET COUNT 384 K/uL (130-400); RED BLOOD COUNT 5.44 M/uL (4.40-5.70); RED CELL DISTRIBUTION WIDTH 15.3 % (11.5-14.5); WHITE BLOOD COUNT W/O DIFF 14.3 K/uL (4.2-12.2)
[2019-03-24] MEDS ORDERED: METHYLPREDNISOLONE PF 125MG/VIAL IVP ONE (06:16)
[2019-03-24] MEDS ORDERED: DIPHENHYDRAMINE HCL 50 MG/ML VIAL IVP ONE (06:16)
[2019-03-24 06:27] LABS: BLOOD UREA NITROGEN 19 mg/dL (6-20); CREATININE 1.3 mg/dL (0.7-1.2); EST GLOMERULAR FILTRATION RATE > 60 mL/min
[2019-03-24 06:28] LABS: TOTAL PROTEIN 7.4 g/dL (6.6-8.7)
[2019-03-24] MEDS ORDERED: 0.9 % SODIUM CHLORIDE 1,000 ML BAG IV ONE (06:29)
[2019-03-24 06:30] LABS: GLUCOSE,RANDOM 111 mg/dL (74-109)
[2019-03-24 06:33] LABS: ALB/GLOB RATIO 1.2 (1.1-1.8); ALBUMIN 4.1 g/dL (4.0-5.0); ALKALINE PHOSPHATASE 82 U/L (40-129); ALT/SGPT 20 U/L (<41); AST/SGOT 15 U/L (10.0-50.0)
--- NOTE | 2019-03-24 06:41 | Emergency Department Record ---
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 he has been in the hospital for angioedema here and at [place] to [facility]. he was on an epi drip and was d/c yesterday. then yesterday he developed hives. 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 he has a hx of tachycardia and htn. pt has positive family hx of heart disease MD Complaint: Chest pain Onset/Timin -: Minutes(s) Onset: During exertion Pain Location: Left chest Pain Radiation: Back Severity: Severe Severity scale (1-10): 9 Quality: Ripping, Sharp Consistency: Constant Improves With: Nothing Worsens With: Exertion, Inspiration, Movement Context: New medications, Recent illness, Other Treatments Prior to Arrival: Other Treatment Prior to Arrival Comment:: prednisone - Related Data Home Medications Medication Instructions Recorded Confirmed Last Taken Metoprolol Succinate [Toprol Xl] 25 mg PO DAILY 03/24/19 03/24/19 03/24/19 Previous Rx's Medication Instructions Recorded Prednisone [Prednisone 10Mg] 10 mg PO ASDIR #30 tab 03/21/19 Allergies Allergy/AdvReac Type Severity Reaction Status Date / Time amlodipine Allergy SWELLING Verified 10/30/18 17:21 (GENERAL) lisinopril Allergy SWELLING Verified 03/22/19 01:57 OF THE LIPS losartan Allergy SWELLING Verified 03/22/19 01:57 (GENERAL) Sulfa (Sulfonamide Allergy PT UNSURE Verified 10/30/18 17:17 Antibiotics) OF REACTION Travel Screening - Travel/Exposure Within Last 30 Days Have you traveled within the last 30 days?: No - Travel Symptoms Symptom Screening: None Review of Systems Reviewed: No additional complaints except as noted below Constitutional: Reports: As per HPI. Denies: Chills, Fever, Malaise, Night sweats, Weakness, Weight change Eyes: Reports: As per HPI. Denies: Eye discharge, Eye pain, Photophobia, Vision change ENT: Reports: As per HPI. Denies: Congestion, Dental pain, Ear pain, Epistaxis, Hearing loss, Throat pain Respiratory: Reports: As per HPI. Denies: Cough, Dyspnea, Hemoptysis, Stridor, Wheezes Cardiovascular: Reports: As per HPI, Chest pain, Palpitations. Denies: Arrhythmia, Dyspnea on exertion, Edema, Murmurs, Orthopnea, Paroxysmal nocturnal dyspnea, Rheumatic Fever, Syncope Endocrine: Reports: As per HPI. Denies: Fatigue, Heat or cold intolerance, Polydipsia, Polyuria Gastrointestinal: Reports: As per HPI. Denies: Abdominal pain, Constipation, Diarrhea, Hematemesis, Hematochezia, Melena, Nausea, Vomiting Genitourinary: Reports: As per HPI. Denies: Dysuria, Frequency, Hematuria, Incontinence, Retention, Testicular pain, Testicular mass, Urgency Musculoskeletal: Reports: As per HPI. Denies: Arthralgia, Back pain, Gout, Joint swelling, Myalgia, Neck pain Skin: Reports: As per HPI, Pruritus, Rash. Denies: Bruising, Change in color, Change in hair/nails, Lesions Neurological: Reports: As per HPI. Denies: Abnormal gait, Confusion, Headache, Numbness, Paresthesias, Seizure, Tingling, Tremors, Vertigo, Weakness Psychiatric: Reports: As per HPI. Denies: Anxiety, Auditory hallucinations, Depression, Homicidal thoughts, Suicidal thoughts, Visual hallucinations Hematological/Lymphatic: Reports: As per HPI. Denies: Anemia, Blood Clots, Easy bleeding, Easy bruising, Swollen glands Past Medical History - SOCIAL HISTORY Smoking Status: Former smoker Alcohol Use: None Drug Use: None - RESPIRATORY Hx Respiratory Disorders: No - CARDIOVASCULAR Hx Cardio Disorders: Yes Hx Hypertension: Yes - NEURO Hx Neuro Disorders: No - GI Hx GI Disorders: Yes Hx Reflux: Yes - Hx Genitourinary Disorders: No - ENDOCRINE Hx Endocrine Disorders: No - MUSCULOSKELETAL Hx Musculoskeletal Disorders: No - PSYCH Hx Psych Problems: No - HEMATOLOGY/ONCOLOGY Hx Hematology/Oncology Disorders: No Family Medical History Any Significant Family History?: Yes Hx Heart Disease: Mother, Grandparents *Heart Comment: high cholesterol, [place] Physical Exam - General General Appearance: Alert, Oriented x3, Cooperative, Mild distress - Head Head exam: Normal inspection - Eye Eye exam: Normal appearance, PERRL, EOMI Pupils: Normal accommodation - ENT ENT exam: Normal exam, Mucous membranes moist, Normal external ear exam, Normal orophraynx Ear exam: Normal external inspection. negative: External canal tenderness Nasal Exam: Normal inspection. negative: Discharge, Sinus tenderness Mouth exam: Normal external inspection, Tongue normal Teeth exam: Normal inspection. negative: Dental caries Throat exam: Normal inspection. negative: Tonsillar erythema, Tonsillar exudate - Neck Neck exam: Normal inspection, Full ROM. negative: Tenderness - Respiratory Respiratory exam: Normal lung sounds bilaterally. negative: Respiratory distress - Cardiovascular Cardiovascular Exam: Regular rate, Normal rhythm, Normal heart sounds - GI/Abdominal GI/Abdominal exam: Soft, Normal bowel sounds. negative: Tenderness - Rectal Rectal exam: Deferred - exam: Deferred - Extremities Extremities exam: Normal inspection, Full ROM, Normal capillary refill. negative: Tenderness - Back Back exam: Reports: Normal inspection, Full ROM. Denies: Muscle spasm, Rash noted, Tenderness - Neurological Neurological exam: Alert, CN II-XII intact, Normal gait, Oriented X3 - Psychiatric Psychiatric exam: Normal affect, Normal mood - Skin Skin exam: Dry, Intact, Normal color, Urticaria, Warm Distribution of rash: Generalized Description of rash: Urticarial Course Vital Signs 03/24/19 05:51 Pulse Rate [ 77 Sheeter Helper ] Respiratory 24 Rate Blood Pressure 131/90 [Right Arm] Pulse Ox 100 - Reevaluation(s) Reevaluation #1: 03/24/19 06:44 pt not given aspirin initially because of concern for aortic dissection. Reevaluation #2: 03/24/19 07:01 care being assumed by dr grullon Medical Decision Making - Lab Data Result diagrams: 03/24/19 05:50 03/24/19 05:59 Lab Results 03/24/19 03/24/19 Range/Units 05:50 05:59 WBC 14.3 H (4.2-12.2) K/uL RBC 5.44 (4.40-5.70) M/uL Hgb 17.0 (14.0-18.0) gm/dl Hct 50.8 (42.0-52.0) % MCV 93.4 (81-97) fl MCH 31.3 (27-33) pg MCHC 33.5 (32-36) g/dl RDW 15.3 H (11.5-14.5) % Plt Count 384 (130-400) K/uL MPV 11.5 H (7.4-10.4) fl Gran % 65.9 (47-80) % Lymphocytes % 27.2 (16-45) % Monocytes % 6.8 (0-9) % Eosinophils % 0.0 (0-6) % Basophils % 0.1 (0-6) % Absolute Neutrophils 9.38 Sodium 142 (136-145) mmol/L Potassium 3.7 (3.4-4.5) mmol/L Chloride 103 (98-107) mmol/L Carbon Dioxide 24.0 (22-29) mmol/L Anion Gap 15.0 (7-16) BUN 19 (6-20) mg/dL Creatinine 1.3 H (0.7-1.2) mg/dL Estimated GFR > 60 mL/min Random Glucose 111 H (74-109) mg/dL Calcium 9.1 (8.6-10.0) mg/dL Total Bilirubin 0.30 (0.2-1.0) mg/dL Total Protein 7.4 (6.6-8.7) g/dL Disposition Forms: Patient Portal Access Quality - Quality Measures Quality Measures: N/A - Blood Pressure Screening Does Patient Have Any of the Following: Active Dx of HTN Blood Pressure Classification: Hypertensive Reading Systolic Measurement: 131 Diastolic Measurement: 90 Screening for High Blood Pressure: Patient Exclusion, Hx of HTN [G9744]
[2019-03-24] MEDS ORDERED: NITROGLYCERIN 0.4MG SL TABLET #25 BTL SL PRN (06:52)
[2019-03-24] MEDS ORDERED: MORPHINE SULFATE 5 MG/ML VIAL IVP ONE (06:52)
--- NOTE | 2019-03-24 07:16 | CT ANGIOGRAM REPORT ---
EXAMINATION: CT Angiography of the Thorax EXAM DATE: 03/24/2019 7:01 AM TECHNIQUE: Standard protocol CT angiogram images were obtained through the chest following the admini stration of intravenous contrast. Coronal and sagittal MIP 3-D reformations were performed. IV Contrast: The amount and type of contrast are recorded in the medical record. INDICATION: CP. COMPARISON: CXR 05/28/2017 ENCOUNTER: Not applicable FINDINGS: Pulmonary Artery: Suboptimal pulmonary artery opacification. No central emboli Aorta: No thoracic aortic aneurysm or dissection is present. Right Heart Strain: None. Heart : There is no pericardial effusion. Mickie and Mediastinum: No lymphadenopathy. Lung Parenchyma: Normal. Central Airways: Normal. Pleural Effusion: None. Mild pleural thickening right minor fissure Upper Abdomen: Unremarkable. Musculoskeletal and Chest Wall: Unremarkable. IMPRESSION: 1. No thoracic aneurysm or thoracic aortic dissection 2. Suboptimal pulmonary artery opacification. No major central pulmonary emboli 3. Mild pleural thickening right minor fissure Dictated by: Brandon Wilson MD on 03/24/2019 7:11 AM. .
--- NOTE | 2019-03-24 07:29 | Emergency Department Record ---
History of Present Illness - General Chief Complaint: Chest Pain Time Seen by Provider: 03/24/19 05:58 Source: Patient Mode of Arrival: Ambulatory Limitations: No limitations - History of Present Illness Initial Comments: 07:00 The patient was turned over by Dr Rodriguez. The patient was seen and examined Dr Rodriguez's chart was reviewed The patient states he had onset of a pain in the mid lower chest/epigastric area at 5am that was sharp. The pain comes and goes. It does radiate to the back somewhat to the left. The patient was seen on Saturday with upper lip swelling. He was treated in the ED. It was thought this may represent a reaction to being on Lisinopril. The swelling returned later at 2am (now Saturday) but on the lower lip. The patient was transferred to [facility] for observation due to the return of swelling of the mouth. He was discharged on Saturday at 4pm according to the patient. He reports the hives have continued to come and go. The hives are on the arms, legs, and groin mostly. His is on steroids and benadryl by prescription. No cough, lip swelling or shortness of breath. He did see his doctor on Saturday and was referred to the [facility] ED Saturday where he was seen, observed and discharged home. (NOTE: Clarification of the HPI provided by Dr Rodriguez. After review of Dr Rodriguez's ED note, talking with the patient, and reviewing [facility], and reviewing the time line with the patient he clarifies the he was not on an epinephrine drip nor was he discharged from [facility] inpatient yesterday. No additional doses of epinephrine were given after treatment at [facility]. No epinephrine was given at [facility] during the inpatient observation. He was discharged on Saturday in the afternoon after observation and it was felt his lips were improved and no airway issues. He did return to the ED on Saturday the for evaluation for the hives. He was seen in the ED and discharged home.) Onset/Timin -: Minutes(s) Onset: During exertion Pain Location: Left chest Pain Radiation: Back Severity: Severe Severity scale (1-10): 9 Quality: Ripping, Sharp Consistency: Constant Improves With: Nothing Worsens With: Exertion, Inspiration, Movement Context: New medications, Recent illness, Other Treatments Prior to Arrival: Other Treatment Prior to Arrival Comment:: prednisone - Related Data Home Medications Medication Instructions Recorded Confirmed Last Taken Metoprolol Succinate [Toprol Xl] 25 mg PO DAILY 03/24/19 03/24/19 03/24/19 Previous Rx's Medication Instructions Recorded Prednisone [Prednisone 10Mg] 10 mg PO ASDIR #30 tab 03/21/19 Cetirizine HCl [Zyrtec] 10 mg PO DAILY #30 cap 03/24/19 Cetirizine HCl [Zyrtec] 10 mg PO DAILY #30 cap 03/24/19 Loratadine [Claritin] 10 mg PO DAILY tablet 03/24/19 Allergies Allergy/AdvReac Type Severity Reaction Status Date / Time amlodipine Allergy SWELLING Verified 10/30/18 17:21 (GENERAL) lisinopril Allergy SWELLING Verified 03/22/19 01:57 OF THE LIPS losartan Allergy SWELLING Verified 03/22/19 01:57 (GENERAL) Sulfa (Sulfonamide Allergy PT UNSURE Verified 10/30/18 17:17 Antibiotics) OF REACTION Travel Screening - Travel/Exposure Within Last 30 Days Have you traveled within the last 30 days?: No - Travel Symptoms Symptom Screening: None Review of Systems Constitutional: Reports: As per HPI. Denies: Chills, Fever, Malaise, Night sweats, Weakness, Weight change Eyes: Reports: As per HPI. Denies: Eye discharge, Eye pain, Photophobia, Vision change ENT: Reports: As per HPI. Denies: Congestion, Dental pain, Ear pain, Epistaxis, Hearing loss, Throat pain Respiratory: Reports: As per HPI. Denies: Cough, Dyspnea, Hemoptysis, Stridor, Wheezes Cardiovascular: Reports: As per HPI, Chest pain, Palpitations. Denies: Arrhythmia, Dyspnea on exertion, Edema, Murmurs, Orthopnea, Paroxysmal nocturnal dyspnea, Rheumatic Fever, Syncope Endocrine: Reports: As per HPI. Denies: Fatigue, Heat or cold intolerance, Polydipsia, Polyuria Gastrointestinal: Reports: As per HPI. Denies: Abdominal pain, Constipation, Diarrhea, Hematemesis, Hematochezia, Melena, Nausea, Vomiting Genitourinary: Reports: As per HPI. Denies: Dysuria, Frequency, Hematuria, Incontinence, Retention, Testicular pain, Testicular mass, Urgency Musculoskeletal: Reports: As per HPI. Denies: Arthralgia, Back pain, Gout, Joint swelling, Myalgia, Neck pain Skin: Reports: As per HPI, Pruritus, Rash. Denies: Bruising, Change in color, Change in hair/nails, Lesions Neurological: Reports: As per HPI. Denies: Abnormal gait, Confusion, Headache, Numbness, Paresthesias, Seizure, Tingling, Tremors, Vertigo, Weakness Psychiatric: Reports: As per HPI. Denies: Anxiety, Auditory hallucinations, Depression, Homicidal thoughts, Suicidal thoughts, Visual hallucinations Hematological/Lymphatic: Reports: As per HPI. Denies: Anemia, Blood Clots, Easy bleeding, Easy bruising, Swollen glands Past Medical History - SOCIAL HISTORY Smoking Status: Former smoker Alcohol Use: None Drug Use: None - RESPIRATORY Hx Respiratory Disorders: No - CARDIOVASCULAR Hx Cardio Disorders: Yes Hx Hypertension: Yes - NEURO Hx Neuro Disorders: No - GI Hx GI Disorders: Yes Hx Reflux: Yes - Hx Genitourinary Disorders: No - ENDOCRINE Hx Endocrine Disorders: No - MUSCULOSKELETAL Hx Musculoskeletal Disorders: No - PSYCH Hx Psych Problems: No - HEMATOLOGY/ONCOLOGY Hx Hematology/Oncology Disorders: No Family Medical History Any Significant Family History?: Yes Hx Heart Disease: Mother, Grandparents *Heart Comment: high cholesterol, [place] Physical Exam - General General Appearance: Alert, Oriented x3, Cooperative, No acute distress Limitations: No limitations - Head Head exam: Atraumatic, Normal inspection - Eye Eye exam: Normal appearance. negative: PERRL, Periorbital swelling, Scleral icterus - ENT ENT exam: Normal exam Ear exam: Normal external inspection Nasal Exam: Normal inspection Mouth exam: Normal external inspection, Tongue normal. negative: Tongue elevation Teeth exam: Normal inspection Throat exam: Normal inspection. negative: Tonsillar erythema, Tonsillomegaly, Tonsillar exudate - Neck Neck exam: Normal inspection, Full ROM. negative: Lymphadenopathy - Respiratory Respiratory exam: Normal lung sounds bilaterally. negative: Accessory muscle use, Decreased breath sounds, Prolonged expiratory, Respiratory distress, Rhonchi, Stridor, Wheezes - Cardiovascular Cardiovascular Exam: Regular rate, Normal rhythm, Normal heart sounds - GI/Abdominal GI/Abdominal exam: Soft. negative: Distended, Guarding, Rigid, Tenderness - Rectal Rectal exam: Deferred - exam: Deferred - Extremities Extremities exam: negative: Normal inspection (Hives) - Back Back exam: Denies: Normal inspection (Hives) - Neurological Neurological exam: Alert, Oriented X3 - Psychiatric Psychiatric exam: Normal affect, Normal mood. negative: Agitated, Anxious - Skin Skin exam: Urticaria. negative: Abrasion, Cyanosis, Diaphoretic Distribution of rash: Abdomen, Back, RUE Description of rash: Urticarial. negative: Blisters, Bullous, Crusting, Discharge, Fluctuant, Indurated, Petechial, Purpuic, Swelling, Tenderness, Vesicular Course Vital Signs 03/24/19 03/24/19 05:51 07:06 Pulse Rate [ 77 80 Subcontract Manager ] Respiratory 24 30 H Rate Blood Pressure 131/90 145/103 [Right Arm] Pulse Ox 100 - Reevaluation(s) Reevaluation #1: 03/24/19 07:59 The CTA was reviewed. No acute process. No dissection. The labs were reviewed. No acute abnormality. The WBC is 14 likely elevated due to recent steroids The Troponin is normal 03/24/19 08:01 The EKG from 05:44 was reviewed. No acute abnormality. Normal EKG. 03/24/19 08:15 The hives are slowly improving. No airway symptoms since the initial Saturday visit. 03/24/19 09:18 No aspirin given as this could worsen an Fidencio Inhibitor angioedema reaction. Pain was not typical for ACS. No aspirin indicated vs risk. 03/24/19 09:26 The hives are much improved at this time. He still denies any airway symptoms, cough, swelling, nausea or vomiting. We discussed the options for him to remain in the hospital, transfer again to [facility] for observation or home. He declined admission or transfer. The treatment at home vs in the hospital are similar but the main benefit in the hospital is the observation. He lives within 2 minutes of the hospital and prefers to stay the course with his home medications until the hives finally resolve. I did discuss that beta blockers can decrease our ab ility to treat allergic reactions. He will need to discuss if there are any other options for him for custodial BP control with his PCP. He has had other adverse reactions to other classes of HTN medications limiting his doctors choices. He states he will follow up with his doctor tomorrow. I recommend continuing the current mediations for the hives but holding his beta ebony tomorrow morning (his next does) until he sees his doctor. I added Zyrtec to his medication list as well. His sister is an RN ([email or web address]) and participated on the phone with the patient. She was part of the conversation regarding my offers for transfer, admission, vs continued treatment at home. Again, the patient is fully aware of the options and risks and benefits of each plan. After answering his questions and shared decision making he request DC home still. He is greatly improved without immediately threatening symptoms. This is not an against medical advice but an informed decision on the patient's part after being presented several options. He is very capable understanding his options and the risks/benefits of each. 03/24/19 09:45 03/24/19 09:47 The repeat troponin was negative HEART SCORE is low with DC recommendation. 03/24/19 10:07 Medical Decision Making - Lab Data Result diagrams: 03/24/19 05:50 03/24/19 05:59 Lab Results 03/24/19 03/24/19 Range/Units 05:50 05:59 WBC 14.3 H (4.2-12.2) K/uL RBC 5.44 (4.40-5.70) M/uL Hgb 17.0 (14.0-18.0) gm/dl Hct 50.8 (42.0-52.0) % MCV 93.4 (81-97) fl MCH 31.3 (27-33) pg MCHC 33.5 (32-36) g/dl RDW 15.3 H (11.5-14.5) % Plt Count 384 (130-400) K/uL MPV 11.5 H (7.4-10.4) fl Gran % 65.9 (47-80) % Lymphocytes % 27.2 (16-45) % Monocytes % 6.8 (0-9) % Eosinophils % 0.0 (0-6) % Basophils % 0.1 (0-6) % Absolute Neutrophils 9.38 Sodium 142 (136-145) mmol/L Potassium 3.7 (3.4-4.5) mmol/L Chloride 103 (98-107) mmol/L Carbon Dioxide 24.0 (22-29) mmol/L Anion Gap 15.0 (7-16) BUN 19 (6-20) mg/dL Creatinine 1.3 H (0.7-1.2) mg/dL Estimated GFR > 60 mL/min Random Glucose 111 H (74-109) mg/dL Calcium 9.1 (8.6-10.0) mg/dL Total Bilirubin 0.30 (0.2-1.0) mg/dL AST 15 (10.0-50.0) U/L ALT 20 (<41) U/L Alkaline Phosphatase 82 (40-129) U/L Troponin T < 0.010 (0-0.010) ng/mL Total Protein 7.4 (6.6-8.7) g/dL Albumin 4.1 (4.0-5.0) g/dL Globulin 3.3 (1.4-4.8) gm/dL Albumin/Globulin Ratio 1.2 (1.1-1.8) Disposition Disposition: Discharge Clinical Impression: Hives, Atypical chest pain Disposition: Home, Self-Care Condition: (1) Good Instructions: Chest Pain (ED), Urticaria (ED) Additional Instructions: Review this ER visit and the tests performed with your family doctor Call your doctor for the next available follow up appointment for a recheck of the hives Return to the ER for a recheck immediately if you have cough, shortness of breath, lip or tongue swelling or any new concerns or questions Take the prescriptions provided as directed and add the Zyrtec daily Discuss with your doctors a referral to an [facility] and discussion of beta block use with allergic reactions given your limitation of choices for blood pressure medicines with your prior allergies. Prescriptions: Cetirizine HCl [Zyrtec] 10 mg PO DAILY #30 cap Cetirizine HCl [Zyrtec] 10 mg PO DAILY #30 cap Forms: Patient Portal Access Time of Disposition: 09:51 Quality - Quality Measures Quality Measures: N/A - Blood Pressure Screening Does Patient Have Any of the Following: Active Dx of HTN Blood Pressure Classification: Hypertensive Reading Systolic Measurement: 130 Diastolic Measurement: 95 Screening for High Blood Pressure: Patient Exclusion, Hx of HTN [[id number]]
[2019-03-24] MEDS ORDERED: LORATADINE 10 MG TABLET PO SCH (10:00)
== END 2019-03-24 10:11 | disposition home or self-care (01) ==
LOC: ER 05:45
DX: L50.0 Allergic urticaria (principal); T46.4X5A Adverse effect of angiotensin-converting-enzyme inhibitors, initial encounter; R07.89 Other chest pain; R10.13 Epigastric pain; I10 Essential (primary) hypertension; Z87.891 Personal history of nicotine dependence
CPT/HCPCS: 71275; 80053; 84484; 85025; 93005; 93010; 96374; 96375; 99285; J1200; J2930; J7030